=== PATIENT | male | born 1960 | race Caucasian/White ===

== ENCOUNTER 2018-07-30 11:34 | Outpatient (REF) | payer BC, SELFPAY | END 2018-07-30 11:54 | LOC: NCHCN 11:34 | PROVIDERS: PCP Nurse Practitioner Family; Visit Provider Specialist/Technologist Athletic Trainer | DX: M70.22 Olecranon bursitis, left elbow (principal) | CPT/HCPCS: 87077; 87070; 87186; 87205 ==